=== PATIENT | male | born 1970 | race Caucasian/White ===

== ENCOUNTER 2021-06-12 09:52 | Emergency (ER) | payer OTHER ==
--- NOTE | 2021-06-12 10:35 | EDM.PDOC ---
ED HPI GENERAL MEDICAL PROBLEM - General Chief Complaint: Respiratory Problem Stated Complaint: fever, cough, "not feeling well" Time Seen by Provider: 06/12/21 10:10 Source of Information: Reports: Patient History Limitations: Reports: No Limitations - History of Present Illness INITIAL COMMENTS - FREE TEXT/NARRATIVE: Mo is a 50 year old man who presents to the emergency department on the morning of 06/12/2021 with complaints of productive cough, chills, recent sick exposure to her grandson who has RSV. States symptoms of been present for 3 days. He denies fever. He has been tested for Covid and was found to be negative. Cough is productive for yellow sputum. It is intermittent throughout the day. He has tried nothing at home to make it better. Deep breathing and temperature changes make the cough worse. Symptoms of been consistent since onset and are no better or no worse on day 3. He was concerned that he may need an antibiotic as his grandson was given azithromycin. Onset: Gradual Onset Date: 06/09/21 Duration: Day(s):, Constant Location: Reports: Face Severity: Moderate Improves with: Reports: None Context: Reports: Sick Contact Associated Symptoms: Reports: cough w sputum, Fever/Chills. Denies: Shortness of Breath Treatments CHANGE RELEASE MANAGER: Reports: Acetaminophen - Related Data Allergies Allergy/AdvReac Type Severity Reaction Status Date / Time gabapentin Allergy Airway Verified 06/12/21 10:03 Tightness Home Meds: Home Meds DULoxetine [Cymbalta] 1 cap PO DAILY 06/12/21 [History] Hydroxychloroquine [Plaquenil] 1 tab PO BID 06/12/21 [History] Modafinil [Provigil] 1 tab PO DAILY 06/12/21 [History] Pregabalin 1 cap PO BID 06/12/21 [History] Propranolol HCl 1 cap PO DAILY 06/12/21 [History] Testosterone Cypionate 1 injection IM Q21D 06/12/21 [History] Zolpidem Tartrate 0.5 tab PO BEDTIME 06/12/21 [History] dilTIAZem HCL [Cardizem Cd] 1 cap PO DAILY 06/12/21 [History] predniSONE 1 tab PO ASDIRECTED PRN 06/12/21 [History] Past Medical History Neurological History: Reports: Neuropathy, Peripheral Social & Family History - Family History Family Medical History: No Pertinent Family History - Tobacco Use Tobacco Use Status *Q: Former Tobacco User Tobacco Use Within Last Twelve Months: No Used Tobacco, but Quit: Yes Month/Year Tobacco Last Used: 2010 Second Hand Smoke Exposure: No - Caffeine Use Caffeine Use: Reports: Coffee - Alcohol Use Alcohol Use History: Yes Alcohol Use Frequency: Socially - Recreational Drug Use Recreational Drug Use: No - Sexual History Sexual History: Reports: Single Partner, Opposite Sex Partner ED ROS GENERAL - Review of Systems Review Of Systems: See Below Constitutional: Reports: Chills HEENT: Reports: Ear Pain, Glasses, Rhinitis, Sinus Problem, Throat Pain Respiratory: Reports: Cough, Sputum Cardiovascular: Reports: No Symptoms Endocrine: Reports: No Symptoms GI/Abdominal: Reports: No Symptoms : Reports: No Symptoms Musculoskeletal: Reports: No Symptoms Skin: Reports: No Symptoms Neurological: Reports: No Symptoms Psychiatric: Reports: No Symptoms Hematologic/Lymphatic: Reports: No Symptoms Immunologic: Reports: No Symptoms ED EXAM, GENERAL - Physical Exam Exam: See Below Exam Limited By: No Limitations General Appearance: Alert, WD/WN, No Apparent Distress Eye Exam: Bilateral Eye: EOMI, Normal Inspection Ears: Normal External Exam Ear Exam: Left Ear: TM Bulging, Bilateral Ear: Other (partial cerumen imapction right. fluid behind TM bilateral) Nose: Nasal Drainage, Other (erythema and inflammation present to bilateral nares) Head: Atraumatic, Normocephalic Neck: Normal Inspection Respiratory/Chest: No Respiratory Distress, No Accessory Muscle Use. No: Crackles, Rales, Rhonchi, Wheezing Cardiovascular: Regular Rate, Rhythm, No JVD, No Murmur, No Rub (Male) Exam: Deferred Rectal (Males) Exam: Deferred Neurological: Alert, Oriented, Normal Cognition, No Motor/Sensory Deficits Psychiatric: Normal Affect, Normal Mood Skin Exam: Dry, Intact, Normal Color, No Rash Lymphatic: No Adenopathy Course - Vital Signs Last Recorded V/S: Last Vital Signs Temp 97.8 F 06/12/21 10:00 Pulse 93 06/12/21 10:00 Resp 16 06/12/21 10:00 BP 135/93 H 06/12/21 10:00 Pulse Ox 98 06/12/21 10:00 - Orders/Labs/Meds Orders: Active Orders 24 hr Category Date Time Status Up With Assistance [RC] ASDIRECTED Care 06/12/21 10:31 Active Vital Signs [RC] We@0800 Care 06/12/21 10:31 Active Nothing per Oral Now Diet [DIET] Diet 06/12/21 Breakfast Active Chest 1V Frontal [CR] Stat Exams 06/12/21 10:31 Taken CULTURE STREP A CONFIRMATION [RM] Stat Lab 06/12/21 10:30 Results STREP SCRN A RAPID W CULT CONF [RM] Stat Lab 06/12/21 10:30 Results Labs: Laboratory Tests 06/12/21 06/12/21 06/12/21 Range/Units 10:50 11:16 11:16 WBC 6.7 (4.0-10.2) K/uL RBC 5.61 H (4.33-5.41) M/uL Hgb 17.1 H (13.1-16.8) g/dL Hct 51.4 H (39.0-49.0) % MCV 91.6 (84.0-98.0) fL MCH 30.5 (28.2-33.3) pg MCHC 33.3 (31.7-36.0) g/dL RDW 13.3 (11.2-14.1) % Plt Count 198 (150-350) K/uL Neut % (Auto) 69.0 (45.0-80.0) % Lymph % (Auto) 11.4 (10.0-50.0) % [place] % (Auto) 14.8 H (2.0-14.0) % Eos % (Auto) 4.2 (0.0-5.0) % Baso % (Auto) 0.6 (0.0-2.0) % Neut # (Auto) 4.61 (1.40-7.00) K/uL Lymph # (Auto) 0.76 (0.50-3.50) K/uL [place] # (Auto) 0.99 (0.00-1.00) K/uL Eos # (Auto) 0.28 (0.00-0.50) K/uL Baso # (Auto) 0.04 (0.00-0.20) K/uL Sodium 145 (136-145) mmol/L Potassium 4.7 (3.5-5.1) mmol/L Chloride 106 (98-107) mmol/L Carbon Dioxide 29.6 (21.0-32.0) mmol/L Anion Gap 9.4 (7-15) meq/L BUN 12 (7-18) mg/dL Creatinine 1.16 (0.51-1.17) mg/dL Est Cr Clr Drug Dosing TNP Estimated GFR (MDRD) > 60 mL/min Glucose 100 H (70-99) mg/dL Calcium 8.7 (8.5-10.1) mg/dL Total Bilirubin 0.5 (0.2-1.0) mg/dL AST 19 (15-37) U/L ALT 34 (12-78) U/L Alkaline Phosphatase 63 (46-116) IU/L Total Protein 7.5 (6.4-8.2) g/dL Albumin 4.0 (3.4-5.0) g/dL Influenza Type A RNA Negative (NEGATIVE) RSV RNA (INAAT) Negative (NEGATIVE) Influenza Type B RNA Negative (NEGATIVE) SARS-CoV-2 RNA (JENNIFER) Negative (NEGATIVE) - Re-Assessments/Exams Free Text/Narrative Re-Assessment/Exam: 06/12/21 10:38 met at bedside. swab for covid/rsv/influenza complete. labs ordered. 06/12/21 11:34 CXR: no obvious opacities. WBC WNL. 06/12/21 12:05 CXR negative for acute pathology. RSV/covid/influenza and strep negative. likely viral URI. will discharge home. Departure - Departure Time of Disposition: 12:07 Disposition: Home, Self-Care 01 Condition: Good Clinical Impression: Viral URI with cough - Discharge Information *PRESCRIPTION DRUG MONITORING PROGRAM REVIEWED*: Not Applicable *COPY OF PRESCRIPTION DRUG MONITORING REPORT IN PATIENT SHERRY: Not Applicable Instructions: Upper Respiratory Infection, Adult, [id number] Forms: ED Department Discharge Sepsis Event Note (ED) - Evaluation Sepsis Screening Result: No Definite Risk - Focused Exam Vital Signs: Vital Signs Temp Temp Pulse Resp BP Pulse Ox 06/12/21 10:00 100.1 F 97.8 F 93 16 135/93 H 98 - Problem List Review Problem List Initiated/Reviewed/Updated: Yes - My Orders Last 24 Hours: My Active Orders 06/12/21 Breakfast Nothing per Oral Now Diet [DIET] 06/12/21 10:30 CULTURE STREP A CONFIRMATION [] Stat STREP SCRN A RAPID W CULT CONF [RM] Stat 06/12/21 10:31 Up With Assistance [RC] ASDIRECTED Vital Signs [RC] We@0800 Chest 1V Frontal [CR] Stat - Assessment/Plan Last 24 Hours: My Active Orders 06/12/21 Breakfast Nothing per Oral Now Diet [DIET] 06/12/21 10:30 CULTURE STREP A CONFIRMATION [RM] Stat STREP SCRN A RAPID W CULT CONF [RM] Stat 06/12/21 10:31 Up With Assistance [RC] ASDIRECTED Vital Signs [RC] We@0800 Chest 1V Frontal [CR] Stat Assessment:: likely viral URI - acetaminophen OTC for temp >100.4 or generalized aches/pain - OTC pseudophedrine for decongestion - follow up with PCP in 7-10 days of symptoms worsen or fail to improve - OTC robitussin for cough at bedtime -
[2021-06-12 11:41] LABS: CORONAVIRUS COVID-19 NAA NEGATIVE (NEGATIVE); RESPIRATORY SYNCYTIAL VIR NAA NEGATIVE (NEGATIVE)
[2021-06-12 11:42] LABS: ANION GAP 9.4 meq/L (7-15); CHLORIDE,CL 106 mmol/L (98-107); SODIUM,NA 145 mmol/L (136-145)
== END 2021-06-12 12:33 | disposition home or self-care (01) ==
LOC: LL.ED 09:52
DX: J06.9 Acute upper respiratory infection, unspecified (principal); Z88.5 Allergy status to narcotic agent; Z87.891 Personal history of nicotine dependence; Z20.822 Contact with and (suspected) exposure to COVID-19
CPT/HCPCS: 0241U; 36415; 71045; 80053; 85025; 87081; 87430; 99283; 99283-25